=== PATIENT | female | born 1950 | race Caucasian/White ===

== ENCOUNTER 2018-11-17 05:27 | Day surgery (SDC) | payer OTHER, MEDICARE ==
[~2018-11-17] VITALS: Ht 157.5 cm; Wt 63.0 kg
[~2018-11-17 05:27] MED LIST: ASPIR 8181 MG PO; CENTRUM SILVER1 EAC4 PO; IBUPROFEN 200200 M1 PO; IBUPROFEN 600600 M1 PO; LISINOPRIL40 MG PO; METFORMIN HCL1000 MG PO; OMEGA-3 KRILL1 EACH PO; PROTONIX 20 MG20 M1 PO; SIMVASTATIN80 MG PO
[2018-11-17 09:45] VITALS: BP 153/66
--- NOTE | 2018-11-21 06:18 | O ---
[facility] [place] [address] OPERATIVE REPORT Name: BHUPINDER MEDINA Room #: DEP [facility]..#: [id number] Admission: 11/17/18 ������������������ Attend Phys: Donlad Khanna MD Discharge: 11/17/18 ������������������ Date of : 50 Report #: [id number] THIS REPORT FOR: //name// CC: DOMENIC Khanna DATE OF SERVICE: 11/17/2018 SURGEON: Donald Khanna MD CONSERVATION COORDINATOR: None. PREOPERATIVE DIAGNOSIS: Bilateral upper lid dermatochalasia with superior visual field defect. POSTOPERATIVE DIAGNOSIS: Bilateral upper lid dermatochalasia with superior visual field defect. OPERATION PERFORMED: Bilateral upper lid functional blepharoplasty. ANESTHESIA: Local with IV sedation. COMPLICATIONS: None. INDICATIONS FOR SURGERY: This patient has acquired upper lid dermatochalasia with superior visual field loss both eyes because of excessive upper lid tissues to include skin and fat. Visual field testing demonstrates dense superior visual defects. Retesting with the upper lid elevated shows an improvement in visual field loss of over 30% and in excess of 12 degrees. The current procedures are undertaken in order to improve the patient's visual function. Informed consent was obtained to include but not limited to the loss of vision, bleeding, infection, scarring, failure to improve the problem and need for further surgery. DESCRIPTION OF OPERATION: The patient was taken to the operating room, where 2% Xylocaine with epinephrine mixed with equal parts of 0.75% Marcaine with Wydase was administered transcutaneously to each upper lid. The patient was then prepped and draped in the usual sterile fashion and a skin-marking pen was then utilized to outline an upper lid crease that was symmetrical on each side. Graefe forceps were then used to quantitate the redundant upper lid skin and it was similarly outlined. The incisions were then made with Sal scissors and a skin-muscle flap removed from each side with high-temp cautery. Hemostasis was achieved with the monopolar cautery as it was throughout the case. The orbital septum was then identified and the central and medial fat pads were [address] [address] OPERATIVE REPORT Name: BHUPINDER MEDINA Room #: DEP [facility] M.R.#: [id number] Admission: 11/17/18 ������������������ Attend Phys: Donald Khanna MD Discharge: 11/17/18 ������������������ Date of : 50 Report #: [id number] inspected. The redundant soft tissue was then sculpted with the monopolar cautery. The upper lid crease was then reformed with tightening of the pretarsal orbicularis muscle. The upper lid crease was then further reformed with multiple interrupted 6-0 chromic sutures. The skin was then closed with a running 6-0 plain gut suture. The wound was then cleaned and dressed with ophthalmic antibiotic ointment and a nonstick dressing. The patient was transported to the recovery area, where cold compresses were applied, having tolerated the procedure well with no anesthetic or operative complications being noted. ��������������������������������������������� <ELECTRONICALLY SIGNED> ���������������������������������������� By: Donald Khanna MD ��������������������������������������������� 11/21/18 0618 [id number] Donald Khanna MD /nt
== END 2018-11-17 11:55 | disposition home or self-care (01) ==
LOC: TBA 05:27 → OR 05:27
DX: H02.834 Dermatochalasis of left upper eyelid (principal); H02.831 Dermatochalasis of right upper eyelid; H53.462 Homonymous bilateral field defects, left side; H53.461 Homonymous bilateral field defects, right side; Z87.891 Personal history of nicotine dependence; Z98.890 Other specified postprocedural states; I10 Essential (primary) hypertension; E78.5 Hyperlipidemia, unspecified; E11.9 Type 2 diabetes mellitus without complications; K21.9 Gastro-esophageal reflux disease without esophagitis
CPT/HCPCS: 50010; 50101; 50386; 50398; 51636; 56531; 62110; 62850; 70005